=== PATIENT | male | born 1960 | race Caucasian/White ===

== ENCOUNTER 2018-08-01 10:58 | Day surgery (SDC) | payer OTHER, MEDICARE ==
[~2018-08-01] VITALS: Ht 170.2 cm; Wt 78.5 kg
[~2018-08-01 10:58] MED LIST: BUPIVACAINE/PF 0.5% ONE; EPINEPHRINE 1 MG/ML, 1ML ONE
[2018-08-01] MEDS ORDERED: SODIUM CHLORIDE 0.9% 1,000 ML IV SCH (12:10)
[2018-08-01] MEDS ORDERED: CARV12.543 PO (12:17)
[2018-08-01] MEDS ORDERED: DOXY100C15 PO (12:17)
[2018-08-01] MEDS ORDERED: LISI40TA PO (12:17)
[2018-08-01] MEDS ORDERED: SULF1TAB24 PO (12:17)
[2018-08-01] MEDS ORDERED: FURO20TA3 PO (12:17)
[2018-08-01] MEDS ORDERED: CALC667C PO (12:17)
[2018-08-01] MEDS ORDERED: CLON0.1T22 PO (12:17)
[2018-08-01] MEDS ORDERED: DOCU100C33 PO (12:17)
[2018-08-01] MEDS ORDERED: INSU100C SQ-INSULIN (12:17)
[2018-08-01 12:20] VITALS: BP 155/75
[2018-08-01] MEDS ORDERED: MIDAZOLAM 1 MG/ML, 2ML IV PRN ×2 (12:30→14:00)
[2018-08-01] MEDS ORDERED: PROMETHAZINE 25 MG/ML, 1ML IV PRN ×2 (12:30→14:00)
[2018-08-01] MEDS ORDERED: OXYcodone 5 MG/5 ML ORAL.SOL UDC PO PRN (12:30)
[2018-08-01] MEDS ORDERED: ACETAMINOPHEN 325 MG TABLET PO PRN ×2 (12:30→14:00)
[2018-08-01] MEDS ORDERED: MORPHINE SULFATE 4 MG/ML, 1ML IVPush PRN ×2 (12:30→14:00)
[2018-08-01] MEDS ORDERED: hydrALAzine 20 MG/ML, 1ML IV PRN ×2 (12:30→14:00)
[2018-08-01] MEDS ORDERED: PLEASE ENTER HEIGHT AND WEIGHT MC SCH (12:30)
[2018-08-01] MEDS ORDERED: ONDANSETRON 2MG/ML, 2ML IV PRN ×2 (12:30→14:00)
[2018-08-01] MEDS ORDERED: ONDANSETRON ODT 8 MG PO PRN ×2 (12:30→14:00)
[2018-08-01] MEDS ORDERED: EPHEDRINE 50 MG/ML, 1ML IVPush PRN ×2 (12:30→14:00)
[2018-08-01] MEDS ORDERED: DIAZEPAM 5 MG/ML, 2ML IVPush PRN ×2 (12:30→14:00)
[2018-08-01] MEDS ORDERED: DIPHENHYDRAMINE 50 MG/ML, 1ML IVPush PRN ×2 (12:30→14:00)
[2018-08-01] MEDS ORDERED: PLEASE ENTER ALLERGIES MC SCH (12:30)
[2018-08-01] MEDS ORDERED: MIDAZOLAM 1 MG/ML, 2ML ONE (12:39)
[2018-08-01] MEDS ORDERED: FENTANYL PF 250 MCG/5ML ONE (12:39)
[2018-08-01] MEDS ORDERED: ONDANSETRON 2MG/ML, 2ML ONE (13:11)
[2018-08-01] MEDS ORDERED: CEFAZOLIN 1,000 MG ONE (13:11)
[2018-08-01] MEDS ORDERED: HEPARIN 1,000 UNITS/ML, 10ML IV ONE (13:34)
[2018-08-01] MEDS ORDERED: FENTANYL PF 100 MCG/2ML IV PRN (14:00)
[2018-08-01] MEDS ORDERED: EPHEDRINE 50 MG/ML, 1ML IM PRN (14:00)
[2018-08-01 14:06] LABS: BASOPHILS # (AUTO) 0.04 x10^3/uL (0-0.1); BASOPHILS % (AUTO) 1 % (0-1); EOSINOPHILS # (AUTO) 0.32 x10^3/uL (0-0.4); EOSINOPHILS % (AUTO) 5 % (1-7); LYMPHOCYTES # (AUTO) 1.35 x10^3/uL (1-3.4); LYMPHOCYTES % (AUTO) 20 % (22-44); MD NO; MEAN CORPUSCULAR HEMOGLOBIN 30.8 pg (27.5-34.5); MEAN CORPUSCULAR HGB CONC 32.8 g/dL (33.2-36.2); MEAN PLATELET VOLUME 7.2 fL (7.4-10.4); MONOCYTES # (AUTO) 0.48 x10^3/uL (0.2-0.8); MONOCYTES % (AUTO) 7 % (2-9); NEUTROPHILS # (AUTO) 4.74 x10^3/uL (1.8-6.8); NEUTROPHILS % (AUTO) 69 % (42-75); PLATELET COUNT 445 x10^3/uL (130-400); RED BLOOD COUNT 3.07 x10^6/uL (4.38-5.82); RED CELL DISTRIBUTION WIDTH 16.2 % (9.4-14.8)
[2018-08-01] MEDS ORDERED: PROPOFOL 10 MG/ML, 20ML ONE (14:12)
[2018-08-01] MEDS ORDERED: OXYcodone 5 MG/5 ML ORAL.SOL UDC ONE (14:24)
[2018-08-01] MEDS ORDERED: FENTANYL PF 100 MCG/2ML ONE (14:24)
[2018-08-01] MEDS: FENTANYL PF 100 MCG/2ML IV PRN ×3 (14:27→14:45)
[2018-08-01] MEDS ORDERED: INSULIN SINGLE DOSE, ER SQ-INSULIN ONE (16:06)
[2018-08-01] MEDS ORDERED: HEPARIN 1,000 UNITS/ML, 10ML ONE (16:21)
[2018-08-01] MEDS ORDERED: INSULIN REGULAR 100 UNITS/ML, 3ML VIAL SQ-INSULIN ONE (16:30)
== END 2018-08-01 16:45 | disposition home or self-care (01) ==
LOC: EDSEX 10:58 → OUT 10:58
PROVIDERS: ATTEND Surgery Vascular Surgery
DX: T82.898A Other specified complication of vascular prosthetic devices, implants and grafts, initial encounter (principal); Y83.8 Other surgical procedures as the cause of abnormal reaction of the patient, or of later complication, without mention of misadventure at the time of the procedure; Y92.89 Other specified places as the place of occurrence of the external cause; I12.0 Hypertensive chronic kidney disease with stage 5 chronic kidney disease or end stage renal disease; N18.6 End stage renal disease; Z79.899 Other long term (current) drug therapy
CPT/HCPCS: 36415; 36821; 49422; 80047; 82962; 85025; J0171; J0690; J1644; J2250; J2405; J2704; J3010; J7030

== ENCOUNTER 2019-02-24 15:18 | Emergency (ER) | payer MEDICARE, OTHER ==
[~2019-02-24] VITALS: Ht 170.2 cm; Wt 78.1 kg
[~2019-02-24 15:18] MED LIST changes: -BUPIVACAINE/PF 0.5% ONE; +CALC667C PO; +CARV12.543 PO; +CLON0.1T22 PO; +DOCU100C33 PO; +DOXY100C15 PO; -EPINEPHRINE 1 MG/ML, 1ML ONE; +FURO20TA3 PO; +INSU100C SQ-INSULIN; +LISI40TA PO; +SULF1TAB24 PO
--- NOTE | 2019-02-24 15:30 | NUR ---
THIS IS A 58 YO MALE COMING IN HIGH BP AT NEPHROLOGY OFFICE. PATIENT WAS AT NEPHROLOGY CLINIC TO FIX FISTULA AND THROMBECTOMY, BP 220'S, WAS GIVEN MEDICATIONS AND DROPPED TO 150'S NAD WAS SYMPTOMATIC WITH LIGHTHEADED AND DIAPHORESIS WITH HR 45. PATIENT STABLE EN ROUTE WITH [facility] WITHOUT SYMPTOMS. BP HERE WAS 170/71, HR 92 AND ASYMPTOMATIC. PATIENT ACCOMPANIED BY TWO [facility] OFFICERS FROM [facility]. PER [facility], PATIENT TO BE HERE FOR EVALUATION AND OBSERVATION, THEN TO BE SENT WITH [facility].
[2019-02-24] MEDS ORDERED: AMLO10TA8 PO (15:36)
[2019-02-24] MEDS ORDERED: HYDR-3342 PO (15:37)
[2019-02-24 16:15] VITALS: BP 186/75
== END 2019-02-24 16:32 | disposition home or self-care (01) ==
LOC: ED 15:56
DX: R00.1 Bradycardia, unspecified (principal); I10 Essential (primary) hypertension; E11.9 Type 2 diabetes mellitus without complications
CPT/HCPCS: 99283